=== PATIENT | male | born 1955 | race Caucasian/White ===

== ENCOUNTER 2018-12-28 08:59 | Day surgery (SDC) | payer OTHER ==
[~2018-12-28] VITALS: Ht 182.9 cm; Wt 149.7 kg
[~2018-12-28 08:59] MED LIST: ASPI81EC PO; FURO20 PO; LISI20 PO; LISI5 PO; METO50 PO; MULVITMIND PO; POTCHL20ER PO; ZINC220 PO
[2018-12-28] MEDS ORDERED: Lisinopril2.5 MG (09:20)
[2018-12-28] MEDS ORDERED: OXYB5 PO (09:21)
[2018-12-28] MEDS ORDERED: METO50ER PO (09:21)
--- NOTE | 2018-12-28 13:06 | NUR ---
12/28/18 1306 Lin Sandoval LATE ENTRY----ADHESIVE TAPE WAS USED FOR IV IN PLACE OF TEGADERM DUE TO PATIENT AND BOTH STATING HE IS ALLERGIC TO TEGADERM
== END 2018-12-28 11:55 | disposition home or self-care (01) ==
LOC: ORSCSDS 08:59
PROVIDERS: Internal Medicine Gastroenterology
PROC: 0DBN8ZX Excision of Sigmoid Colon, Via Natural or Artificial Opening Endoscopic, Diagnostic (ICD-10-PCS; principal; 2018-12-28 10:30)
PROC: 0DBP8ZX Excision of Rectum, Via Natural or Artificial Opening Endoscopic, Diagnostic (ICD-10-PCS; principal; 2018-12-28 10:30)
DX: Z12.11 Encounter for screening for malignant neoplasm of colon (principal); K63.5 Polyp of colon; I10 Essential (primary) hypertension; G47.33 Obstructive sleep apnea (adult) (pediatric); Z87.891 Personal history of nicotine dependence; E66.01 Morbid (severe) obesity due to excess calories; Z68.41 Body mass index [BMI] 40.0-44.9, adult; Z79.899 Other long term (current) drug therapy
CPT/HCPCS: 88305; J7120

== ENCOUNTER 2020-02-09 00:14 | Observation (INO) | payer OTHER ==
[~2020-02-09] VITALS: Ht 182.9 cm; Wt 142.8 kg
[~2020-02-09 00:14] MED LIST changes: +Lisinopril2.5 MG; +METO50ER PO; +OXYB5 PO
[2020-02-09] MEDS ORDERED: AMLO5 (01:06)
[2020-02-09] MEDS ORDERED: AMLO5 PO (01:07)
[2020-02-09] MEDS ORDERED: WARF5 PO ×2 (01:08→13:24)
[2020-02-09 02:44] LABS: BASOPHILS ABSOLUTE AUTO 0.02 K/mm3 (0.00-0.23); BASOPHILS PERCENT AUTO 0 % (0-2); EOSINOPHILS ABSOLUTE AUTO 0.15 K/mm3 (0.00-0.68); EOSINOPHILS PERCENT AUTO 2 % (0-6); Hematocrit 38.7 % (37.0-53.0); Hemoglobin 12.9 g/dL (13.5-17.5); IMMATURE GRAN ABSOLUTE AUTO 0.05 K/mm3 (0.00-0.10); IMMATURE GRAN PERCENT AUTO 1 % (0-1); LYMPHOCYTES ABSOLUTE AUTO 1.76 K/mm3 (0.84-5.20); LYMPHOCYTES PERCENT AUTO 20 % (21-46); MONOCYTES ABSOLUTE AUTO 1.26 K/mm3 (0.16-1.47); MONOCYTES PERCENT AUTO 14 % (4-13); Mean Corpuscular HGB 31.7 pg (26.0-34.0); Mean Corpuscular HGB Conc 33.3 g/dL (31.5-36.5); Mean Corpuscular Volume 95 fL (80-100); Mean Platelet Volume 10.6 fL (9.1-12.4); NEUTROPHILS ABSOLUTE AUTO 5.51 K/mm3 (1.96-9.15); NEUTROPHILS PERCENT AUTO 63 % (41-73); Platelet Count 116 K/mm3 (150-400); RDW Coefficient Variation 12.6 % (11.7-14.2); RDW Standard Deviation 44.7 fL (35.1-46.3); Red Blood Cell Count 4.07 M/mm3 (4.30-5.90); White Blood Cell Count 8.75 K/mm3 (4.00-11.30)
[2020-02-09 02:56] LABS: International Normalized Ratio 3.26; Prothrombin Time Results 32.6 Sec (9.7-11.5)
[2020-02-09 03:00] LABS: Alanine Aminotransfer (ALT/SGP 25 U/L (12-78); Albumin/Globulin Ratio 0.8 (0.8-1.8); Alk Phos 55 U/L (50-136); Anion Gap 7 mmol/L (6-16); Aspartate Aminotrans (AST/SGOT 34 U/L (12-37); Bilirubin, Total 0.7 mg/dL (0.1-1.0); Blood Urea Nitrogen 21 mg/dL (8-24); Bun/Creatinine Ratio 26.2 (12.0-20.0); CO2, Blood 21 mmol/L (21-32); Chloride, Blood 108 mmol/L (98-108); Glomerular Filtration Rate >60 (60-); Glucose, Blood 119 mg/dL (70-99); Potassium, Blood 3.9 mmol/L (3.5-5.5); Sodium, Blood 136 mmol/L (136-145)
[2020-02-09] MEDS ORDERED: FISH OIL 1,0001 EAC1 PO (05:03)
[2020-02-09] MEDS ORDERED: MULTIVITAMINS1 EAC3 PO (05:04)
--- NOTE | 2020-02-09 07:26 | NUR ---
Rn summary: Patient was admitted from ED via W/C. Pt is alert and oriented but is forgetful, repeats stories. Pt assessment is stable, has redness and swelling Left lower calf and foot. Pulses palpable. Pt states he has sl tingling to left leg. Pt is able to ambulate to BR independantly, sl limp. Pt oriented to room and uses the call light appropriately. Plan for ultrasound of LLE this am. Report to Bernice CHERRY.
[2020-02-09] MEDS ORDERED: LISI20 PO (13:20)
--- NOTE | 2020-02-09 17:28 | NUR ---
SHIFT SUMMARY PT INDEPENDENT TO BATHROOM EXCEPT WHEN IV INFUSING. SHOWER TAKEN THIS MORNING AND TOLERATED WITH NO PROBLEM. SANTI MADE AROUND RED AREA ON LLE. SWELLING TO LLE WELL WITH WARMTH NOTED AT RED AREA. SEEN BY DR. DENNY THIS AFTERNOON. DENIES AND PAIN TO SITE.
[2020-02-10 05:08] LABS: International Normalized Ratio 3.32; Prothrombin Time Results 33.2 Sec (9.7-11.5)
[2020-02-10] MEDS ORDERED: KEFLEX500 MG PO (10:45)
[2020-02-10] MEDS ORDERED: Florastor250 MG PO (10:45)
--- NOTE | 2020-02-10 12:08 | NUR ---
DISCHARGE INSTRUCTIONS COMPLETED AND DISCUSSED WITH PT EXPRESSING UNDERSTANDING. SCRIPTS FAXED TO [facility]. TO [facility] VIA W/C WITH PICKING PT UP.
== END 2020-02-10 11:14 | disposition home health service (06) ==
LOC: ER 00:14 → MEDS 00:15
PROVIDERS: Emergency Medicine; ADMIT Internal Medicine
DX: L03.116 Cellulitis of left lower limb (principal); I10 Essential (primary) hypertension; D64.9 Anemia, unspecified; Z79.01 Long term (current) use of anticoagulants; Z98.890 Other specified postprocedural states; Z79.899 Other long term (current) drug therapy; Z88.6 Allergy status to analgesic agent
CPT/HCPCS: 36415; 80053; 83605; 85025; 85610; 93005; 93010; 93971; 96365; 96366; 99285-25; A9270-GY; G0378; J0692; J7050